=== PATIENT | female | born 1970 | race Caucasian/White ===

== ENCOUNTER → 2021-07-08 | Outpatient (CLI) | payer MEDICARE, OTHER ==
[~2021-07-08] MED LIST: CARI350T PO; CYCL10TA19 PO; DIPH-121 PO; FURO40TA4 PO; METH-561 PO; MONT10TA49 PO; ONDA4TAB12 PO; OXYC5CAP PO; PREG300C PO; [UNRECOGNIZED DRUG - CODE] PO
--- NOTE | 2021-07-08 09:51 | PDOC1 ---
INITIAL PAIN CONSULT DATE OF SERVICE: DOS: DATE: 07/08/21 TIME: 09:39 CHIEF COMPLAINT: Chief Complaint: Low back and bilateral lower extremity pain right greater than left Neck and bilateral upper extremity pain left greater than right HISTORY OF PRESENT ILLNESS: 50-year-old female presents history of pain low back and right lower extremity for approximately 12 years not the result of any specific injury or accident that she is aware but has significant pain in the back in the low lumbar spine as well as radiating to the right lower extremity greater than the left and present bilaterally. Patient also reports pain base the neck and shoulders with pain worse on the left side rating to the left arm but into both hands and thumbs and first and second fingers patient has had multiple surgeries on each level of the cervical distribution as well as lumbar distribution 3 cervical surgeries and 4 lumbar surgeries thus far. Patient reports she has a new orthopedic surgeon now and he is evaluating her for additional surgery in the future as necessary. Patient reports pain is constant sharp stabbing throbbing shooting with numbness and tingling radiating pain burning cramping aching feels cold in the upper extremities and head of insight the lower extremities also some significant spasticity in the low back more on the right than the left as well. Patient reports it wakes her from sleep about 5 times a night does affect her maninder wel bladder control but no incontinence just increased urgency patient reports she is using a walker to ambulate it does affect ability walk significantly. Patient has had previous chiropractic treatment as well as physical therapies from 2009 through 2020 doing exercise currently as well as stretching strengthening and heat application to the back and the neck has had trigger poi nt injections epidural injections as well as counseling. Patient is taking hydrocodone currently as well as oxycodone, as well as [id number] anti- inflammatories Motrin, also Tylenol, and reports only moderate decrease in pain with each of these. Patient rates her disability rating 0-10 10 being the worst is a 10 with family responsibilities recreation social activity occupation sexual behavior 8 with self-care and 10 with life support activities. Patient does have a MRI scan of the lumbar spine report performed on May 29, 2021 showing previous laminectomy defects as well as retrolisthesis L3-L4 with bilateral facet arthropathy and joint effusions moderate to severe right and moderate left neuroforaminal narrowing increased from prior exam. PAST MEDICAL HISTORY: PMH: Esophageal reflux, COPD, hypertension, arthritis, cigarette smoking PREVIOUS SURGERIES: Past Surgical Hx: Hysterectomy, knee replacement bilaterally, lumbar laminectomy x4, cervical laminectomy x3 CURRENT MEDICATIONS: Current Meds: Active Scripts Medications Dose Route/Sig Max Daily Dose Days Date Category Cyclobenzaprine Hcl 10 Mg Tablet 1 Tab PO TID 07/08/21 Reported Soma (Carisoprodol) 350 Mg Tablet 350 Mg PO TID&HS 07/08/21 Reported Ondansetron Odt (Ondansetron) 4 Mg Tab.rapdis 1 Tab PO PRN Q6-8HRS 07/08/21 Reported Almotriptan Malate 12.5 Mg Tablet 12.5 Mg PO Q6HRS PRN 07/08/21 Reported Lyrica (Pregabalin) 300 Mg Capsule 1 Cap PO BID 07/08/21 Reported Methocarbamol 500 Mg Tablet 500 Mg PO QID 07/08/21 Reported Singulair Tablet (Montelukast Sodium) 10 Mg Tablet 10 Mg PO HS 07/08/21 Reported Furosemide 40 Mg Tablet 1 Tab PO DAILY 07/08/21 Reported Benadryl Allergy (Diphenhydramine Hcl) 12.5 Mg/5 Ml Liquid 2.5 Ml PO Q6HRS 12 07/08/21 Reported Oxycodone Hcl 5 Mg Capsule 15 Mg PO Q6HRS PRN 07/08/21 Reported FAMILY HISTORY: Family Hx: Cancers, tuberculosis, kidney disease, lung diseases SOCIAL HISTORY: Social Hx: Patient there is alcohol occasionally but only rarely continues to smoke approximate 1 pack a day and has for the last 41years does not use any illegal illicit or recreational drugs is currently from her has 1 child living at home lives locally in [facility] REVIEW OF SYSTEMS: ROS: Positive for those items mentioned in history of present illness, all systems are reviewed, otherwise negative ,and are complete full and well-documented on patient's chart. PHYSICAL EXAM: VS: Blood pressure is 147/90 pulse 88 respirations 18 temperature is 98.5 F height is 5 foot 7 inches weight is 158 pounds. PE: PHYSICAL EXAMINATION: GENERAL: The patient is awake, alert, oriented, appropriate, very pleasant in demeanor HEENT: Shows normocephalic, atraumatic. Extraocular movements are intact and symmetrical. Oral cavity: Mucous membranes moist and pink. Dentition is intact. NECK: Shows anterior throat supple without palpable lymphadenopathy noted. Swallow reflex symmetrical. CHEST: Shows normal on inspection. Breath sounds are clear bilaterally, distant and coarse but no rales rhonchi or wheezes auscultated. HEART: Shows S1, S2 clear. No murmurs auscultated. ABDOMEN: Soft, nontender, nondistended. No palpable organomegaly is noted. BACK: Shows spine grossly in the midline. Normal-appearing cervical lordotic curvature. Cervical paraspinous muscles show symmetrical with inspection on palpation some significant tenderness with palpation on the left and the right inferior aspect of the cervical paraspinous musculature as well as in the superior medial trapezius on the left side. Patient's rotation of motion shows significant limitation with left lateral rotation patient rotates her entire upper body to the right at approximate 45 degrees with significant tenderness but without radiation bilaterally. Patient shows limited extension as well as limited flexion secondary to pain as well. There is slightly increased thoracic kyphosis, some flattening of the lumbar lordotic curvature, with well-healed midline surgical scarring. Lumbar paraspinous muscles show symmetrical on inspection, on palpation shows some moderate tenderness diffusely throughout the upper, middle and lower distribution of the paraspinous muscles bilaterally and also into the lower thoracic paraspinous musculature, firm and tender, but without specific trigger points, without radiation of pain. The patient has good rotational motion of the lumbar spine, both laterally as well as extension and flexion without significant difficulty. No tenderness over the spinous proc esses, sacrum or sacroiliac regions. EXTREMITIES: Lower extremities show deep tendon reflexes 1+ in the patellar and tendo calcaneus tendons. Motor exam is 3 on a scale of 5 with right dorsiflexion, extension, quadriceps and hamstring flexion and 3/5 on the left. Peripheral pulses are 1+ posterior tibial. No peripheral edema is noted bilaterally. Lower extremities are warm and dry to touch, equal in color and appearance. Straight leg raise noted to be positive on the right about 35 degrees, left side is positive at 45 degrees. Gaenslen's and Catrachito's maneuvers are negative bilaterally. 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 The patient is able to stand, but is slow in delivery getting up from a seated position using arms of the chair to support herself, walks with a shuffling gait and is using a rolling walker to ambulate. SKIN: Shows warm and dry, good turgor. No edema. No sores, rashes or bruising throughout. IMPRESSION: Impression: 50-year-old female with long history approximate 12 years pain base the neck left upper extremity radicular fashion following a C6-7 dermatomal distribution, also low back pain rating the right lower extremity in a radicular fashion following an L5-S1 dermatomal distribution. Status post multiple spinal surgeries both cervical and lumbar COPD Hypertension Arthritis Plan: Options were discussed the patient clued exert medical management physical therapies intermittently. Patient has been through all these techniques in the past and is currently doing physical therapies as well as stretching strength exercises and oral analgesics and anti-inflammatories without significant reduction in pain. Patient has clinical radiculopathy at the L5 S1 dermatomal distribution most severe on the right. We discussed a lumbar epidural steroid injection and will wait for preauthorization once approved we will have patient return for L5-S1 translaminar approach lumbar epidural steroid injection with fluoroscopic guidance. In meantime, patient will continue with stretching strength exercises heat application as well as oral analgesics as currently. NIC GARCIA MD July 08, 2021 09:51
== END | disposition home or self-care (01) ==
LOC: PNCL 08:01
PROVIDERS: ATTEND Anesthesiology
DX: M54.50 Low back pain, unspecified (principal); M54.2 Cervicalgia; M79.605 Pain in left leg; M79.604 Pain in right leg; M79.602 Pain in left arm; M79.601 Pain in right arm; K21.9 Gastro-esophageal reflux disease without esophagitis; J44.9 Chronic obstructive pulmonary disease, unspecified; I10 Essential (primary) hypertension; M19.90 Unspecified osteoarthritis, unspecified site; Z90.710 Acquired absence of both cervix and uterus; Z98.890 Other specified postprocedural states; Z79.899 Other long term (current) drug therapy
CPT/HCPCS: 99205; G0463